=== PATIENT | male | born 1935 | race Caucasian/White ===

== ENCOUNTER 2025-04-01 13:47 | Outpatient (CLI) | payer MEDICARE, BC ==
--- NOTE | 2025-04-01 16:50 | RADIOLOGY REPORT ---
PROCEDURE: MR MRI LUMBAR SPINE Indication: RADICULOPATHY, LUMBAR REGION COMPARISON: None TECHNIQUE: Multiplanar multisequence images of the the lumbar spine are obtained. FINDINGS: For the purpose of this examination, there are 5 lumbar vertebral body types counting from the lumbosacral junction. Lumbar heights maintained. Moderate multilevel disc space narrowing and desiccation. There is 5 mm anterolisthesis of L3 upon L4. No abnormal marrow edema. Conus terminates at the L1 level. L1-2: Moderate facet and flavum hypertrophy, [id number]. No spinal canal stenosis. [id number]-[id number] bilateral neural foraminal stenosis. L2-3: 2 mm disc protrusion. Moderate facet and flavum hypertrophy. No spinal canal stenosis. Moderate bilateral neural foraminal stenosis. L3-4: 5 mm disc protrusion. Severe facet and flavum hypertrophy. Thecal sac measures 5 mm AP. Severe spinal canal stenosis. Severe bilateral neural foraminal stenosis. L4-5: 2 mm disc protrusion. Severe facet and flavum hypertrophy. Thecal sac measures 9 mm AP. Mild spinal canal stenosis. Severe bilateral neural foraminal stenosis. L5-S1: 2 mm disc protrusion. Moderate facet and flavum hypertrophy. No spinal canal stenosis. Severe bilateral neural foraminal stenosis IMPRESSION: Moderate lumbar degenerative disc disease. Severe spinal canal stenosis L3-4. Mild spinal canal stenosis at L4-5. Multilevel moderate to severe neural foraminal stenosis as described above.
== END 2025-04-01 23:59 | disposition home or self-care (01) ==
LOC: MRI02 13:47
PROVIDERS: ATTEND Anesthesiology
DX: M51.16 Intervertebral disc disorders with radiculopathy, lumbar region (principal); M48.07 Spinal stenosis, lumbosacral region; M51.27 Other intervertebral disc displacement, lumbosacral region; M47.27 Other spondylosis with radiculopathy, lumbosacral region
CPT/HCPCS: 72148